=== PATIENT | male | born 1945 | race Caucasian/White ===

== ENCOUNTER 2020-06-12 11:20 | Outpatient (NON) | payer MEDICARE, OTHER, SELFPAY ==
[2020-06-12 21:15] LABS: SARS-CoV-2 RNA PCR Negative
== END 2020-06-12 11:21 ==
PROVIDERS: PCP Nurse Practitioner Family; Visit Provider Nurse Practitioner Family
DX: Z20.828 Contact with and (suspected) exposure to other viral communicable diseases (principal)
CPT/HCPCS: 87635; C9803; U0003

== ENCOUNTER 2023-10-16 14:29 | Emergency (ER) | payer OTHER, MEDICARE, SELFPAY ==
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
[2023-10-16 14:56] VITALS: BP 164/58; PULSE 58; RESP 18; TEMP 36.4; O2SAT 100
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
== END 2023-10-16 17:15 | disposition home or self-care (01) ==
PROVIDERS: Emergency Provider Nurse Practitioner Family; PCP Emergency Medicine
DX: S52.591A Other fractures of lower end of right radius, initial encounter for closed fracture (principal); S52.611A Displaced fracture of right ulna styloid process, initial encounter for closed fracture; Z87.891 Personal history of nicotine dependence; Z79.01 Long term (current) use of anticoagulants; V49.50XA Passenger injured in collision with unspecified motor vehicles in traffic accident, initial encounter
CPT/HCPCS: 29125; 73110; 99284; A4565

== ENCOUNTER 2023-12-29 08:42 | Outpatient (CLI) | payer OTHER, MEDICARE, SELFPAY ==
[2023-12-29 16:35] LABS: Alanine Aminotransferase 15 U/L (6-50); Albumin Level 4.3 g/dL (3.5-5.1); Alkaline Phosphatase 54 U/L (38-126); Anion Gap 11 mmol/L (4-12); Aspartate Amino Transferase 47 U/L (17-59); Bilirubin,Total 0.8 mg/dL (0.2-1.3); Blood Urea Nitrogen 14 mg/dL (9-20); Calcium 9.3 mg/dL (8.4-10.2); Carbon Dioxide 25 mmol/L (22-30); Chloride 105 mmol/L (98-107); Cholesterol 158 mg/dL (0-200); Estimated Glomerular Filt Rate 59; Glucose 92 mg/dL (65-110); HDL Direct 45 mg/dL; Potassium 3.7 mmol/L (3.4-5.0); Sodium 141 mmol/L (137-145); Triglycerides 176 mg/dL (<150)
[2023-12-29 16:46] LABS: LDL Cholesterol Direct 77 mg/dL
[2023-12-29 17:01] LABS: Total Triiodothyronine (T3) 1.07 NG/ML (0.97-1.69)
[2023-12-29 18:32] LABS: Free T4 Free Thyroxine 1.17 ng/mL (0.78-2.19)
[2023-12-29 18:40] LABS: Hemoglobin A1C 5.7 % (<5.7)
== END 2023-12-29 08:43 | disposition home or self-care (01) ==
PROVIDERS: PCP Emergency Medicine; Visit Provider Emergency Medicine
DX: E05.00 Thyrotoxicosis with diffuse goiter without thyrotoxic crisis or storm (principal); I10 Essential (primary) hypertension; R73.03 Prediabetes
CPT/HCPCS: 36415; 80053; 80061; 83036; 84439; 84443; 84480

== ENCOUNTER 2024-04-30 00:18 | Day surgery (SDC) | payer OTHER, MEDICARE, SELFPAY ==
[2024-04-24 10:47] VITALS: BMI 31.0
--- NOTE | 2024-04-27 07:34 | SUR.PREOP ---
Patient's chart reviewed with Dr. Sky anesthesiologist regarding patient's cardiology visit earlier this month. Dr. Sky said the patient is good to proceed with his EGD on Tuesday and no additional orders received.
[2024-04-30 12:20] VITALS: BP 130/60; PULSE 65; RESP 16; TEMP 36.2; O2SAT 100; BMI 31.4
[2024-04-30] MEDS: LACTATED RINGERS 1,000 ML 150 ML IV CONT (12:33)
[2024-04-30] MEDS: GENTAMICIN 80MG/SOD CHL 50 ML 80 MG/50 ML BAG 100 MG IVPB (12:36)
[2024-04-30 12:39] LABS: Glucose Point of Care 94 mg/dl (65-105)
--- NOTE | 2024-04-30 12:54 | WPDHPUPDATE1 ---
History and Physical Update Update Date/Time: 04/30/24 12:54 History and Physical has been reviewed, including an updated exam of the patient. There are NO changes in the patient's condition. Risks, benefits, and alternatives have been discussed and questions answered. Patient agrees to proceed with procedure.
[2024-04-30] MEDS: AMPICILLIN 2 GM/NS 100 ML 2 GM/100 ML BAG IVPB (12:58)
[2024-04-30 13:14] VITALS: BP 120/59; PULSE 68; RESP 20; O2SAT 100
[2024-04-30 13:24] VITALS: BP 135/68; PULSE 61; RESP 20; O2SAT 100
[2024-04-30 13:34] VITALS: BP 145/78; PULSE 61; RESP 25; O2SAT 100
--- NOTE | 2024-05-07 11:37 | WPDANESEPPF ---
Anes - Initial Pre Proc Eval Procedure: Operation Date: 04/30/24 13:30 Proposed Procedures p Esophagogastroduodenoscopy - Camron Santiago MD Date/Time: 05/07/24 11:37 Surgeon: Camron Santiago MD Pre Op Diagnosis: Dysphagia Patient Data Age: 78 Gender: M Height: 1.8 m Weight: 102.3 kg Last Vital Signs Temp 97.2 F L 04/30/24 12:20 Pulse 61 04/30/24 13:34 Resp 25 H 04/30/24 13:34 BP 145/78 H 04/30/24 13:34 Pulse Ox 100 04/30/24 13:34 O2 Del Method Room Air 04/30/24 13:34 Allergies Allergy/AdvReac Type Severity Reaction Status Date / Time codeine Allergy Severe Shakiness Verified 04/30/24 12:18 adhesive tape Allergy Intermediate Rash Verified 04/30/24 12:18 gemifloxacin Allergy Intermediate Unknown Verified 04/30/24 12:18 Home Medications Medication Instructions Recorded Confirmed Type metoprolol tartrate 50 mg tablet 50 mg PO BID #180 tabs 11/15/23 04/30/24 Rx montelukast 10 mg tablet 10 mg PO DAILY #90 tabs 11/15/23 04/30/24 Rx simvastatin 20 mg tablet 20 mg PO DAILY #90 tabs 11/15/23 04/30/24 Rx warfarin 5 mg tablet 5 mg PO .COMPLEX #30 tabs 11/15/23 04/30/24 Rx warfarin 7.5 mg tablet See Rx Instructions PO .COMPLEX 11/15/23 04/30/24 Rx #30 tabs lisinopril 40 mg tablet 40 mg PO DAILY #90 tabs 11/17/23 04/30/24 Rx fluorouracil 5 % topical cream 1 applic topical BID #40 grams 03/15/24 04/30/24 Rx hydrochlorothiazide 25 mg tablet 25 mg PO DAILY #90 tabs 03/15/24 04/30/24 Rx tobramycin 0.3 % eye drops 2 drp EACH EYE Q4H #5 mL 04/18/24 04/30/24 Rx Centrum Mens 50 Plus 1 tab-cap PO DAILY 04/24/24 04/30/24 History fluticasone 250 mcg-salmeterol 50 1 inh inhalation BID 04/24/24 04/30/24 History mcg/dose blistr powdr for inhalation (Wixela Inhub) fluticasone propionate 50 2 spray intranasal BID 04/24/24 04/30/24 History mcg/actuation nasal spray,suspension metformin 500 mg tablet,extended 500 mg PO BID 04/24/24 04/30/24 History release 24 hr methimazole 5 mg tablet 5 mg PO EVERY OTHER DAY 04/24/24 04/30/24 History omeprazole 20 mg capsule,delayed 20 mg PO .daily #30 caps 05/01/24 Rx release Patient hx anesthesia problems: none Family hx anesthesia problems: none Results Review: All pre-operative results and documents have been reviewed as part of the pre-operative evaluation. [facility] Family History Family History Sibling Hypertension Cerebrovascular accident Father Family history of coronary artery disease Social History Social History Smoking packs per day: 1.5 Smoking cigarettes per day: 30.0 Years smoked: 25 Smoking pack-years: 37.50 Smoking status: Former smoker Tobacco type: cigarettes Smokeless tobacco user: other Second hand tobacco smoke exposure: No Smoking end date: 08/08/89 Alcohol intake: current Substance use: never Substance use type: does not use Spiritual care concerns: No Anes - Eval Final PreProcedure Day of Procedure 05/07/24 11:37 Patient weight: obese Heart: regular rate and rhythm Lungs: clear to auscultation Airway: Mallampati scale class II Neurological: alert and oriented Last oral intake: >/= 8 hours ASA classification: III Emergent: no Anesthetic plan: proceed Anesthesia type and monitoring: general GIVS and standard monitoring Results Review: All pre-operative results and documents have been reviewed as part of the pre-operative evaluation. Informed Consent: The patient's anesthetic plan and its attendant risks and benefits were discussed with the patient/family/POA. Questions were solicited and answers provided to the satisfaction of the patient/family/POA.
== END 2024-04-30 14:08 | disposition home or self-care (01) ==
PROVIDERS: PCP Emergency Medicine; Referring Provider Nurse Practitioner Family; Visit Provider Internal Medicine Gastroenterology
PROC: 0DJ08ZZ Inspection of Upper Intestinal Tract, Via Natural or Artificial Opening Endoscopic (ICD-10-PCS; CPT 43235; principal; 2024-04-30 13:30)
DX: K21.00 Gastro-esophageal reflux disease with esophagitis, without bleeding (principal); K22.2 Esophageal obstruction; K29.50 Unspecified chronic gastritis without bleeding; E05.00 Thyrotoxicosis with diffuse goiter without thyrotoxic crisis or storm; I10 Essential (primary) hypertension; E11.9 Type 2 diabetes mellitus without complications; Z95.2 Presence of prosthetic heart valve; Z87.891 Personal history of nicotine dependence; Z82.49 Family history of ischemic heart disease and other diseases of the circulatory system
CPT/HCPCS: 43239; 43249; 82948; 88305; 88342; C1726; J0290; J1580; J2704; J7120